=== PATIENT | female | born 1960 | race Caucasian/White ===

== ENCOUNTER → 2016-10-23 | Day surgery (SDC) | payer SELFPAY ==
[~2016-10-23] VITALS: Ht 165.1 cm; Wt 80.6 kg
[~2016-10-23] MED LIST: ASPIRIN325 MG PO; GLUCOPHAGE500 MG PO; LEVOTHROID (S100 MCG PO; LEVOTHROID(SYN75 MCG PO; LOVASTATIN10 MG PO; NORCO 10-325 T1 EACH PO; PERCOCET 5-3251 EACH PO
--- NOTE | ~2016-10-23 | OR ---
PATIENT'S NAME: MAURICIO UNNES [facility] AGE: 56 Y [address] ROOM: [place] [address] LOCATION: [facility] [place] ADMIT DATE: 10/23/2016 OR/Procedure Report DISCHARGE DATE: FAMILY PHYSICIAN: PHYSICIAN, NO ATTENDING PHYSICIAN: MEREDITH BLUE SURGEON: Meredith Blue MD FASHION CONSULTANT SALES: DATE OF PROCEDURE: 10/23/2016 ADDENDUM: Of note, my PA, Lalito Milligan PA-C, played an integral role in the intraoperative care of this patient. This included preoperative positioning, intraoperative expert retraction, and closing and dressing functions. MD MACRI RASHIDD/modl /[id number] d: 11/15/16 1145 t: 11/16/16 1401, OPERATIVE SUMMARY
--- NOTE | ~2016-10-23 | CON ---
PATIENT'S NAME: MAURICIO NUNES [facility] AGE: 56 Y [address] ROOM: [place] [address] LOCATION: [facility] [place] ADMIT DATE: 10/23/2016 Consultation DISCHARGE DATE: FAMILY PHYSICIAN: PHYSICIAN, NATHAN ATTENDING PHYSICIAN: MEREDITH BLUE DATE OF CONSULTATION: 10/23/2016 ADDENDUM: Of note, my PA, Lalito Milligan PA-C, played an integral role in the intraoperative care of this patient. This included preoperative positioning, intraoperative expert retraction, and closing and dressing functions. MD MEENA RASHID/amaya /[id number] d: 11/02/16 1658 t: 11/05/16 180, CONSULTATION REPORT
--- NOTE | ~2016-10-23 | OR ---
PATIENT'S NAME: MAURICIO NUNES [facility] AGE: 56 Y [address] ROOM: [place] [address] LOCATION: [facility] [place] ADMIT DATE: 10/23/2016 OR/Procedure Report DISCHARGE DATE: FAMILY PHYSICIAN: PHYSICIAN, NO ATTENDING PHYSICIAN: MEREDITH BLUE SURGEON: Meredith Blue MD STEEL HANGER: Lalito Milligan PA-C. DATE OF PROCEDURE: 10/23/2016 PREOPERATIVE DIAGNOSIS: Symptomatic left knee medial meniscus tear. POSTOPERATIVE DIAGNOSIS: Symptomatic left knee medial meniscus tear. PROCEDURE: 1. Left knee arthroscopy. 2. Subtotal medial meniscectomy. 3. Extensive debridement, medial compartment chondroplasty and excision of hypertrophic fat pad. ANESTHESIA: General endotracheal anesthesia. FLUIDS: See anesthesia report. ESTIMATED BLOOD LOSS: Minimal. TOURNIQUET: Left proximal thigh 250 mmHg. SPECIMEN: None. COMPLICATIONS: None. DISPOSITION: Stable in PACU. COUNTS: All counts were correct. INDICATIONS: Ms. Nunes is a pleasant 56-year-old female who underwent the noted procedures above. The risks, benefits, and alternatives pursuing a surgical intervention were discussed with the patient in detail. She elected to proceed with surgery as noted above. Anesthesia was consulted for their perioperative evaluation of the patient. OPERATIVE REPORT IN DETAIL: The patient was taking from holding area the operating room. A time-out was performed. General endotracheal anesthesia was administered. Ancef antibiotic was observed for perioperative prophylaxis. The left lower extremity was then prepped and draped in a sterile fashion. PATIENT'S NAME: MAURICIO NUNES [facility] AGE: 56 Y [address] ROOM: [place] [address] LOCATION: [facility] [place] ADMIT DATE: 10/23/2016 OR/Procedure Report DISCHARGE DATE: FAMILY PHYSICIAN: PHYSICIAN, NO ATTENDING PHYSICIAN: MEREDITH BLUE The knee was prepped and draped in sterile fashion. I turned my attention to the left knee. I used an Esmarch to exsanguinate the limb, and the tourniquet was inflated to 250 mmHg. I began with a lateral parapatellar portal to access the knee. I performed a diagnostic arthroscopy and pictures were taken. There was evidence of what appeared to be a bucket- handle tear of the anterior and mid portions of the medial meniscus that flipped into the medial compartment and notch. There was evidence of a delamination towards the midportion of the medial meniscus. There was extensive hypertrophic fat pad. I introduced my shaver into a medial portal. I excised the fat pad. I performed a chondroplasty in the medial compartment. Using a straight biter, I removed the portion of the meniscus that had delaminated and bucket-handle flipped into the joint. I used a shaver to smooth and contour the edges. I found mild degenerative changes in the medial compartment and mild changes at the patellofemoral and lateral compartment articulations. Arthroscopic images documented the subtotal medial meniscectomy. All the fluid was removed from the joint. A 2-0 nylon stitch was used in a portal fashion to approximate the two portal holes. The tourniquet was then let down. Sterile dressings were placed in the form of Xeroform, followed by 4 x 4, Webril, and Atilio wrap from the toes to the proximal thigh. The patient was then transferred from the operating room table on to the stretcher and extubated. She was brought to the recovery room in stable condition. IMPRESSION: The patient is status post the noted procedures above. PLAN: The patient will be weightbearing as tolerated in the left lower extremity. She was encouraged to rest, ice, and elevate the extremity going forward. Postoperative pain control in the form of Percocet and IV morphine as needed for pain. The patient will be discharged to home from the PACU, provided she meets PACU discharge criteria. I will continue to follow the patient closely in the postoperative period. She will see me in the office in 2 weeks for first postoperative visit. Aspirin will be administered for DVT prophylaxis postoperatively. MD MEENA RASHID/amaya PATIENT'S NAME: MAURICIO NUNES [facility] AGE: 56 Y [address] ROOM: [place] [address] LOCATION: [facility] [place] ADMIT DATE: 10/23/2016 OR/Procedure Report DISCHARGE DATE: FAMILY PHYSICIAN: PHYSICIAN, NO ATTENDING PHYSICIAN: MEREDITH BLUE /[id number] d: 10/23/165 t: 10/25/16 1202, OPERATIVE SUMMARY
--- NOTE | 2016-10-23 15:51 | NUR ---
1535 PATIENT TO ROOM 1039. REPORT TO Devin ZULETA RN
== END ==
LOC: GPOC 10-17 13:00 → GSDC 11:46
PROC: 0SBD4ZZ Excision of Left Knee Joint, Percutaneous Endoscopic Approach (ICD-10-PCS; principal; 2016-10-23)
DX: S83.242A Other tear of medial meniscus, current injury, left knee, initial encounter (principal); F17.210 Nicotine dependence, cigarettes, uncomplicated; Z87.442 Personal history of urinary calculi; Z86.2 Personal history of diseases of the blood and blood-forming organs and certain disorders involving the immune mechanism; Z86.39 Personal history of other endocrine, nutritional and metabolic disease; X58.XXXA Exposure to other specified factors, initial encounter
CPT/HCPCS: J0690; J1885; J2001; J7030

== ENCOUNTER 2016-10-25 09:26 | Emergency (ER) | payer SELFPAY ==
--- NOTE | ~2016-10-25 | ER ---
PATIENT'S NAME: MAURICIO NUNES [facility] AGE: 56 Y [address] ROOM: [place] [address] LOCATION: [facility] ADMIT DATE: 10/25/2016 ER/Outpatient Report DISCHARGE DATE: 10/25/2016 FAMILY PHYSICIAN: PHYSICIAN, NO ATTENDING PHYSICIAN: Rickie Eli Time of Arrival: 0926 hours. Time of Evaluation: 0937 hours. IDENTIFICATION: A 56-year-old female. CHIEF COMPLAINT: Allergic reaction. HISTORY OF PRESENT ILLNESS: The patient is a 56-year-old female, who recently had a left knee arthroscopy per Dr. Maynard on Saturday. This morning, she woke up and she has erythema and itching in her left upper extremity. She does have what appears to be possibly a couple of insect bites. She also has swelling and itching of her left eye. No visual problems. No drainage. No tightening in her throat. No trouble breathing. ALLERGIES: NO KNOWN DRUG ALLERGIES. CURRENT MEDICATIONS: 1. Levothyroxine 100 mcg daily. 2. Hydrocodone/acetaminophen 10/325 p.r.n. 3. Lovastatin 10 mg at h.s. 4. Metformin 500 mg b.i.d. 5. Oxycodone 5/325 one p.o. q.6 hours p.r.n. 6. Aspirin 325 mg daily. MEDICAL PROBLEMS: Hyperlipidemia, hypothyroidism, diabetes mellitus type 2, and recent left knee arthroscopy for meniscal injury. REVIEW OF SYSTEMS: All systems reviewed and negative other than what is noted in the HPI. SOCIAL HISTORY: The patient lives here in [place]. Tobacco use, half pack per day. Alcohol use, denies. Drug use, denies. PATIENT'S NAME: MAURICIO NUNES [facility] AGE: 56 Y [address] ROOM: [place] [address] LOCATION: [facility] ADMIT DATE: 10/25/2016 ER/Outpatient Report DISCHARGE DATE: 10/25/2016 FAMILY PHYSICIAN: PHYSICIAN, NO ATTENDING PHYSICIAN: Rickie Eli FAMILY HISTORY: No pertinent family history. PHYSICAL EXAMINATION: VITAL SIGNS: Weight 82.4 kg, pulse 86, respirations 16, temperature 98.8, blood pressure 140/80, and saturations 99% on room air. GENERAL: A pleasant, 56-year-old female, in no acute distress. HEENT: Head: Normocephalic and atraumatic. Ears: TMs translucent both ears. Nose: Mucosa pink. No lesions. Mouth: No lesions. Pharynx benign. NECK: Supple. No lymphadenopathy. LUNGS: Clear to auscultation. HEART: Regular rate and rhythm. ABDOMEN: Soft, nondistended, and nontender. SKIN: [place], warm, and dry. The patient has erythema and swelling to her left upper eyelid just lateral to her left eye. She has swelling and erythema with a couple of apparent insect bites to her left upper extremity, which is pruritic in nature. No other lesions or rashes are noted other than some scabbed and scarred lesions on her right upper extremity. IMPRESSION: Allergic reaction probably secondary to insect bite. PLAN: The patient was given 50 mg of oral Benadryl, her symptoms improved. She will be discharged home. Allergic reaction handout. Benadryl 25 to 50 mg q.6 hours p.r.n. for itching. Follow up immediately if any respiratory distress. Follow up with Dr. Maynard as far as his instructions regarding left knee and follow up at [facility] needed. The patient understands and agrees, and all questions have been answered. RICKIE ELI MD CAR/davidl /[id number] d: 10/25/162009 t: 11/08/16700, OUTPATIENT REPORT
== END 2016-10-25 10:13 | disposition disaster alternative care site (69) ==
LOC: GMED 09:26
DX: S40.862A Insect bite (nonvenomous) of left upper arm, initial encounter (principal); S00.262A Insect bite (nonvenomous) of left eyelid and periocular area, initial encounter; E78.4 Other hyperlipidemia; E03.9 Hypothyroidism, unspecified; E11.9 Type 2 diabetes mellitus without complications; F17.210 Nicotine dependence, cigarettes, uncomplicated; Z79.82 Long term (current) use of aspirin; Z79.84 Long term (current) use of oral hypoglycemic drugs; Z79.899 Other long term (current) drug therapy; W57.XXXA Bitten or stung by nonvenomous insect and other nonvenomous arthropods, initial encounter

== ENCOUNTER 2016-12-08 14:58 | Emergency (ER) | payer SELFPAY ==
--- NOTE | ~2016-12-08 | ER ---
PATIENT'S NAME: MAURICIO NUNES [facility] AGE: 56 Y [address] ROOM: [place] [address] LOCATION: ED ADMIT DATE: 12/08/2016 ER/Outpatient Report DISCHARGE DATE: 12/08/2016 FAMILY PHYSICIAN: PHYSICIAN, NO ATTENDING PHYSICIAN: Emory Mesa Time of Arrival: 1458 hours. Time of Evaluation: 1500 hours. SUBJECTIVE: CHIEF COMPLAINT: Insect bites. HISTORY OF PRESENT ILLNESS: The patient is a pleasant, well-appearing, 56-year-old female, who arrived to the emergency department via private auto. Complains of some insect bites to her right hand and forearm and right elbow that she first noticed this morning. Has had similar bites to this in the past. Red with surrounding erythema with about a 2 to 3 cm radius around a central raised portion. Not draining. There is a central umbilication that is likely the original bite site at each of these lesions. Denies any fever, chills, or sweats. Has no airway complaints. No hoarse voice. She states that she came in today because of her type 2 diabetes history and her daughter looking up similar symptoms on the Internet, which told her that she needs to be seen by a physician today. PERTINENT REVIEW OF SYSTEMS: All systems reviewed by me and negative unless otherwise stated in the HPI. PAST MEDICAL HISTORY: Xnw-cjutvus-mdncianut type 2 diabetes mellitus, hypothyroidism, and high cholesterol. PAST SURGICAL HISTORY: Scope of the left knee remotely. ALLERGIES: NO KNOWN DRUG ALLERGIES. CURRENT MEDICATIONS: 1. Levothyroxine. 2. Lovastatin. 3. Metformin. 4. Aspirin. PATIENT'S NAME: MAURICIO NUNES [facility] AGE: 56 Y [address] ROOM: [place], [place] [address] LOCATION: ED ADMIT DATE: 12/08/2016 ER/Outpatient Report DISCHARGE DATE: 12/08/2016 FAMILY PHYSICIAN: PHYSICIAN, NO ATTENDING PHYSICIAN: Emory Mesa SOCIAL HISTORY: The patient is a current half pack per day smoker with no desire to quit at this time. OBJECTIVE: VITAL SIGNS: Height 5 feet and 5 inches, weight 79 kilos, blood pressure 148/71, pulse 92, respirations 16, temperature 98.5 tympanically, and SpO2 of 98% on room air. Current pain 3/10. GENERAL: The patient is well developed, well nourished, in no acute distress. Calm. Alert and oriented to person, place, and time. HEENT: Head: Atraumatic and normocephalic. Eyes: Conjunctivae clear. No discharge. Pupils are PERRLA bilaterally. EOMFI bilaterally. No nystagmus. Throat with midline uvula. No exudates, erythema, or tonsillar hypertrophy. Airway is patent. NECK: Supple without lymphadenopathy. Trachea midline. No JVD. LUNGS: Clear to auscultation bilaterally. No wheezes, crackles, rhonchi, or stridor. Normal respiratory effort. HEART: Regular rate and rhythm. No S3, S4, or extra sounds. DERM: The patient has 6 raised lesions on her right forearm. One on elbow along the extensor surface, 4 along her forearm following the path of the ulna, and 1 just proximal to her fifth MCP of the right hand on the dorsal aspect. About 0.25 cm diameter raised lesion surrounded by 2 to 3 cm of erythema. Not draining. There is a central umbilication that is likely the bite site. No bugs or foreign bodies noted at this time. ASSESSMENT: Insect bites, nonvenomous. PLAN: The patient should apply some triamcinolone cream to the area to minimize inflammation. Oral Benadryl should also be helpful in minimizing the bug reaction. Routine cleaning with soap and water otherwise. Advised the patient to follow up with her primary doctor within the week or sooner if these are not improving or if they worsen. The patient verbalized understanding and all of her questions were answered. Discussed hygiene practices within the home that may help to remove any insects to include but not limited to, fleas or bed bugs. Take all medications as prescribed. Discussed med risks, side effects, and benefits in detail. Give plenty of rest and liquids. Take Tylenol or ibuprofen as directed for fever or discomfort unless allergic, asthmatic, or aspirin sensitive. Return to the emergency department or primary care provider if symptoms persist or worsen. PATIENT'S NAME: MAURICIO NUNES [facility] AGE: 56 Y [address] ROOM: [place] [address] LOCATION: ED ADMIT DATE: 12/08/2016 ER/Outpatient Report DISCHARGE DATE: 12/08/2016 FAMILY PHYSICIAN: PHYSICIANNATHAN ATTENDING PHYSICIAN: Emory Mesa TIMBO NOEL PA-C FOR EMORY MESA MD SMR/modl /[id number] d: 12/08/162111 t: 12/17/161952, OUTPATIENT REPORT
== END 2016-12-08 15:18 | disposition disaster alternative care site (69) ==
LOC: GMED 14:58
DX: S60.561A Insect bite (nonvenomous) of right hand, initial encounter (principal); S50.861A Insect bite (nonvenomous) of right forearm, initial encounter; S50.361A Insect bite (nonvenomous) of right elbow, initial encounter; E11.9 Type 2 diabetes mellitus without complications; E03.9 Hypothyroidism, unspecified; E78.00 Pure hypercholesterolemia, unspecified; F17.210 Nicotine dependence, cigarettes, uncomplicated; Z79.82 Long term (current) use of aspirin; Z79.84 Long term (current) use of oral hypoglycemic drugs; W57.XXXA Bitten or stung by nonvenomous insect and other nonvenomous arthropods, initial encounter